=== PATIENT | male | born 1990 ===

== ENCOUNTER → 2024-01-26 | Outpatient (REF) | payer OTHER ==
[2024-01-26 15:17] LABS: SEMEN APPEARANCE OPAQUE (OPAQUE); SEMEN VISCOSITY LIQUID (LIQUID); SEMEN VOLUME 5.6 ML (2.0-5.0); SEMEN WBC <=1 M/ml (<=1 M/ml); SEMEN pH 8.5 (7.0-8.0)
== END ==
LOC: M LAB REF 14:47
PROVIDERS: ATTEND Student in an Organized Health Care Education/Training Program
DX: N46.8 Other male infertility (principal)